=== PATIENT | female | born 1995 | race American Indian/Alaskan Native ===

== ENCOUNTER 2017-07-10 06:29 | Emergency (ER) | payer SELFPAY ==
[2017-07-10 07:31] VITALS: BP 126/77
--- NOTE | 2017-07-10 09:32 | Emergency Department Report ---
ED General Adult HPI - General Chief complaint: Urogenital-Female Stated complaint: FEVER Time Seen by Provider: 07/10/17 09:05 Source: patient Mode of arrival: Ambulatory Limitations: No Limitations - History of Present Illness Initial comments: PT c/o feeling ill since . PT states she also had a fever blister to her left lower lip. 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 PT states she popped the blister and it has healed but she is still feeling sick. PT states she might have had a fever, she did not check her temperature. Allergies:QUITA POTTER Complaint: sick -: Gradual, days(s) (4 ) Location: face, back, abdomen Severity scale (0 -10): 5 Quality: aching Consistency: constant Improves with: none Worsens with: none Associated Symptoms: fever/chills, malaise. denies: chest pain, cough, nausea/ vomiting Treatments Prior to Arrival: none - Related Data Previous Rx's Medication Instructions Recorded Last Taken Type Ibuprofen [Motrin] 600 mg PO Q8H PRN #15 tablet 07/10/17 Unknown Rx Nitrofurantoin [place]/M-Cryst 100 mg PO Q12HR #14 capsule 07/10/17 Unknown Rx [Macrobid CAP] ED Review of Systems ROS: Stated complaint: FEVER Other details as noted in HPI Comment: All other systems reviewed and negative Constitutional: fever (subjective ), malaise. denies: chills ENT: throat pain. denies: congestion Respiratory: denies: cough, shortness of breath, SOB with exertion, SOB at rest Cardiovascular: denies: chest pain Gastrointestinal: abdominal pain. denies: vomiting Genitourinary: other (pt states she is on her cycle now and having heavy bleeding ). denies: dysuria, abnormal menses Musculoskeletal: back pain Skin: rash (to lip ) ED Past Medical Hx - Past Medical History Additional medical history: HERPES - Surgical History Hx Cholecystectomy: Yes - Social History Smoking Status: Never Smoker Substance Use Type: Alcohol - Medications Home Medications: Home Medications Medication Instructions Recorded Confirmed Last Taken Type Ibuprofen [Motrin] 600 mg PO Q8H PRN #15 tablet 07/10/17 Unknown Rx Nitrofurantoin [place]/M-Cryst 100 mg PO Q12HR #14 capsule 07/10/17 Unknown Rx [Macrobid CAP] ED Physical Exam - General Limitations: No Limitations General appearance: alert, in no apparent distress - Head Head exam: Present: atraumatic, normocephalic, normal inspection - Eye Eye exam: Present: normal appearance, PERRL, EOMI. Absent: conjunctival injection, nystagmus - ENT ENT exam: Present: mucous membranes moist, TM's normal bilaterally, normal external ear exam - Expanded ENT Exam Expanded Mouth exam: Present: normal external inspection (no vesicles or ulcers noted ). Absent: drooling, trismus Teeth exam: Present: normal inspection Throat exam: Positive: tonsillar exudate (questionable exudate vs food particle on R tonsil) - Neck Neck exam: Present: normal inspection, tenderness, full ROM, lymphadenopathy - Respiratory Respiratory exam: Present: normal lung sounds bilaterally. Absent: respiratory distress, wheezes, rales, rhonchi, stridor - Cardiovascular Cardiovascular Exam: Present: regular rate, normal rhythm, normal heart sounds - GI/Abdominal GI/Abdominal exam: Present: soft, normal bowel sounds. Absent: tenderness, guarding, rebound - Extremities Exam Extremities exam: Present: normal inspection, full ROM. Absent: tenderness, normal capillary refill, pedal edema, joint swelling, calf tenderness - Back Exam Back exam: Present: normal inspection, full ROM. Absent: tenderness, CVA tenderness (R), CVA tenderness (L), muscle spasm, paraspinal tenderness, vertebral tenderness - Neurological Exam Neurological exam: Present: alert, oriented X3 - Expanded Neurological Exam Expanded Patient oriented to: Present: person, place, time Speech: Present: fluid speech Best Eye Response ([place]): (4) open spontaneously Best Motor Response ([place]): (6) obeys commands Best Verbal Response ([place]hma): (5) oriented Reshma Total: 15 - Psychiatric Psychiatric exam: Present: normal affect, normal mood - Skin Skin exam: Present: warm, dry, intact, normal color ED Course Vital Signs 07/10/17 07:29 Temperature 98.3 F Pulse Rate 98 H Respiratory 16 Rate Blood Pressure 126/77 O2 Sat by Pulse 100 Oximetry - Reevaluation(s) Reevaluation #1: 07/10/17 10:48 PT aware of lab results. PT has no questions at this time. Strict return precautions given. - Pulse Oximetry Interpretation Digit-Finger Initial Pulse Oximetry Readin Actions Taken: none ED Medical Decision Making - Lab Data Result diagrams: 07/10/17 09:17 07/10/17 09:17 NA-139 K-3.2 Chloride-97.5 Anion gap- 18 Laboratory Results - last 72 hr 07/10/17 07/10/17 07/10/17 09:15 09:17 09:17 WBC 10.8 RBC 4.39 Hgb 11.6 Hct 35.8 MCV 82 MCH 27 L MCHC 33 RDW 13.4 Plt Count 267 Lymph % (Auto) 19.7 [place] % (Auto) 14.1 H Eos % (Auto) 0.1 Baso % (Auto) 0.3 Lymph # 2.1 [place] # 1.5 H Eos # 0.0 Baso # 0.0 Seg Neutrophils % 65.8 Seg Neutrophils # 7.1 Carbon Dioxide 27 BUN 5 L Creatinine 0.8 Estimated GFR > 60 BUN/Creatinine Ratio 6.25 Glucose 88 Calcium 8.7 Total Bilirubin 0.40 AST 25 ALT 28 Alkaline Phosphatase 59 Total Protein 7.9 Albumin 3.8 L Albumin/Globulin Ratio 0.9 Urine Color Yellow Urine Turbidity Clear Urine pH 6.0 Ur Specific [place] 1.014 Urine Protein 30 mg/dl Urine Glucose (UA) Neg Urine Ketones Tr Urine Blood Lg Urine Nitrite Neg Urine Bilirubin Neg Urine Urobilinogen 2.0 Ur Leukocyte Esterase Mod Urine WBC (Auto) 41.0 H Urine RBC (Auto) 64.0 U Epithel Cells (Auto) 3.0 Urine Bacteria (Auto) 1+ Urine Mucus 2+ Urine HCG, Qual Negative - Differential Diagnosis anemia, , uti, uri Critical Care Time: No Critical care attestation.: If time is entered above; I have spent that time in minutes in the direct care of this critically ill patient, excluding procedure time. ED Disposition Clinical Impression: Hypokalemia UTI (urinary tract infection) Qualifiers: Urinary tract infection type: acute cystitis Hematuria presence: with hematuria Qualified Code(s): N30.01 - Acute cystitis with hematuria Disposition: TO HOME OR SELFCARE Is pt being admited?: No Does the pt Need Aspirin: No Condition: Stable Instructions: Urinary Tract Infection in Women (ED), Hypokalemia (ED) Additional Instructions: Follow up with PCP in 3-5 days Return to ED if worsening or concerns (fevers, chills, nausea) Prescriptions: Ibuprofen [Motrin] 600 mg PO Q8H PRN #15 tablet PRN Reason: Pain Nitrofurantoin [place]/M-Cryst [Macrobid CAP] 100 mg PO Q12HR #14 capsule Referrals: PRIMARY CARE, [Primary Care Provider] - 3-5 Days PRESTON YOUNGBLOOD MD [Staff Physician] - 3-5 Days [facility] [Outside] - 3-5 Days Forms: Work/School Release Form(ED) Time of Disposition: 10:55
[2017-07-10 09:54] LABS: Basophils % (Auto) 0.3 % (0.0-1.8); Eosinophils % (Auto) 0.1 % (0.0-4.3); Hematocrit 35.8 % (30.3-42.9); Hemoglobin 11.6 gm/dl (10.1-14.3); Mean Corpuscular HGB Conc 33 % (30-34); Mean Corpuscular Hemoglobin 27 pg (28-32); Mean Corpuscular Volume 82 fl (79-97); Platelet Count 267 K/mm3 (140-440); Red Blood Count 4.39 M/mm3 (3.65-5.03); Red Cell Distribution Width 13.4 % (13.2-15.2); White Blood Count 10.8 K/mm3 (4.5-11.0)
[2017-07-10 10:12] LABS: Alanine Aminotransferase 28 units/L (7-56); Albumin 3.8 g/dL (3.9-5); Albumin/Globulin Ratio 0.9 %; Alkaline Phosphatase 59 units/L (35-129); Anion Gap 18 mmol/L; BUN/Creatinine Ratio 6.25; Blood Urea Nitrogen 5 mg/dL (7-17); Calcium 8.7 mg/dL (8.4-10.2); Carbon Dioxide 27 mmol/L (22-30); Chloride 97.5 mmol/L (98-107); Glucose 88 mg/dL (65-100); Potassium 3.2 mmol/L (3.6-5.0); Sodium 139 mmol/L (137-145); Total Protein 7.9 g/dL (6.3-8.2)
[2017-07-10 10:15] LABS: Bacteria,Urine 1+ /HPF (Negative); Bilirubin,Urine NEG (Negative); Blood,Urine LG (Negative); Ketones,Urine TR mg/dL (Negative); Leukocyte Esterase,Urine MOD (Negative); Mucus,Urine 2+ /HPF; Nitrite,Urine NEG (Negative)
[2017-07-10] MEDS ORDERED: MOTRIN PO ONE (10:52)
[2017-07-10] MEDS ORDERED: K-DUR PO ONE (10:52)
== END 2017-07-10 11:01 | disposition home or self-care (01) ==
LOC: ED 06:29
DX: N39.0 Urinary tract infection, site not specified (principal); E87.6 Hypokalemia
CPT/HCPCS: 36415; 80053; 81001; 81025; 85025; 87076; 87086; 87116; 87186; 87430; 99283

== ENCOUNTER 2019-01-27 00:49 | Emergency (ER) | payer MEDICAID ==
[2019-01-27 00:59] VITALS: BP 126/80
[2019-01-27 01:22] LABS: Basophils # (Auto) 0.1 K/mm3 (0.0-0.1); Basophils % (Auto) 0.7 % (0.0-1.8); Eosinophils # (Auto) 0.2 K/mm3 (0.0-0.4); Eosinophils % (Auto) 1.5 % (0.0-4.3); Hematocrit 34.9 % (30.3-42.9); Hemoglobin 11.5 gm/dl (10.1-14.3); Lymphocytes # (Auto) 2.8 K/mm3 (1.2-5.4); Lymphocytes % (Auto) 21.9 % (13.4-35.0); Mean Corpuscular HGB Conc 33 % (30-34); Mean Corpuscular Volume 84 fl (79-97); Monocytes % (Auto) 7.5 % (0.0-7.3); Platelet Count 247 K/mm3 (140-440); Red Blood Count 4.15 M/mm3 (3.65-5.03); Red Cell Distribution Width 14.2 % (13.2-15.2)
[2019-01-27 01:31] LABS: Amorphous Crystals,Urine 1+; Bacteria,Urine 2+ /HPF (Negative); Bilirubin,Urine NEG (Negative); Blood,Urine NEG (Negative); Color,Urine Straw (Yellow); Protein,Urine <15 mg/dL mg/dL (Negative); Urobilinogen,Urine < 2.0 mg/dL (<2.0)
[2019-01-27 01:53] LABS: Alanine Aminotransferase 23 units/L (7-56); Albumin 4.1 g/dL (3.9-5); BUN/Creatinine Ratio 10; Blood Urea Nitrogen 7 mg/dL (7-17); Calcium 9.1 mg/dL (8.4-10.2); Hemolysis Index 6
--- NOTE | 2019-01-27 02:56 | Ultrasound Report ---
PROCEDURE: US OB <= 14 WEEKS FETUS TECHNIQUE: Real-time transabdominal sonography of the uterus, placenta, amniotic fluid, adnexa, and fetus was performed with image documentation. Measurements were obtained to determine age/size. M-mode Doppler was used to document heartbeat. ADDITIONAL GESTATION: None. HISTORY: 10 weeks with vaginal bleeding and cramping COMPARISONS: None . FINDINGS: CRL: 11 mm, which corresponds to a gestational age of: 7 weeks, 2 days. Yolk Sac: Appropriate for gestational age. . Embryonic Cardiac Activity: 1 19 bpm . Gestational Sac: Size and shape are appropriate for gestational age Placenta: Normal Amniotic fluid: Appropriate for gestational age. Cervix: Normal. Right Ovary: Normal . Left Ovary: Normal . Estimated delivery date: 09/13/2019 . Uterus and adnexa: Normal. IMPRESSION: Single live intrauterine gestation at approximately 7 weeks 2 days . EDC by US 09/13/20 19 . This document is electronically signed by Joy George DO., January 27 2019 02:54:27 AM ET
== END 2019-01-27 04:09 | disposition left against medical advice (07) ==
LOC: ED 00:49
DX: O26.891 Other specified pregnancy related conditions, first trimester (principal); R10.2 Pelvic and perineal pain; Z3A.10 10 weeks gestation of pregnancy; Z53.21 Procedure and treatment not carried out due to patient leaving prior to being seen by health care provider
CPT/HCPCS: 36415; 76801; 80053; 81001; 84702; 85025

== ENCOUNTER 2019-02-21 20:41 | Emergency (ER) | payer MEDICAID ==
[2019-02-21 21:16] VITALS: BP 112/74
--- NOTE | 2019-02-21 21:56 | Emergency Department Report ---
Blank Doc - Documentation Documentation: 23 y o female at 9 weeks cc of vaginal bleed labs ,US ordered ACC eval
[2019-02-21 22:14] LABS: Basophils % (Auto) 0.2 % (0.0-1.8); Eosinophils # (Auto) 0.2 K/mm3 (0.0-0.4); Eosinophils % (Auto) 1.4 % (0.0-4.3); Hematocrit 36.6 % (30.3-42.9); Hemoglobin 11.9 gm/dl (10.1-14.3); Lymphocytes # (Auto) 2.7 K/mm3 (1.2-5.4); Lymphocytes % (Auto) 19.7 % (13.4-35.0); Mean Corpuscular HGB Conc 32 % (30-34); Mean Corpuscular Volume 85 fl (79-97); Monocytes # (Auto) 0.9 K/mm3 (0.0-0.8); Monocytes % (Auto) 6.8 % (0.0-7.3); Platelet Count 276 K/mm3 (140-440); Red Cell Distribution Width 14.4 % (13.2-15.2)
[2019-02-21 22:26] LABS: BUN/Creatinine Ratio 11; Blood Urea Nitrogen 8 mg/dL (7-17); Calcium 9.2 mg/dL (8.4-10.2); Hemolysis Index 16
[2019-02-21 22:56] LABS: Bacteria,Urine 4+ /HPF (Negative); Bilirubin,Urine NEG (Negative); Blood,Urine NEG (Negative); Color,Urine Amber (Yellow); Mucus,Urine 3+ /HPF; Urobilinogen,Urine < 2.0 mg/dL (<2.0)
--- NOTE | 2019-02-22 00:09 | Ultrasound Report ---
PROCEDURE: US OB <= 14 WEEKS FETUS TECHNIQUE: Real-time transabdominal and transvaginal sonography of the uterus, placenta, amniotic fl uid, adnexa, and fetus was performed with image documentation. Measurements were obtained to determin e age/size. M-mode Doppler was used to document heartbeat. ADDITIONAL GESTATION: None. HISTORY: vag bleed COMPARISONS: None . FINDINGS: CRL: 40 mm, which corresponds to a gestational age of: 10 weeks, 6 days. Yolk Sac: Appropriate for gestational age. . Embryonic Cardiac Activity: 1 63 bpm . Gestational Sac: Size and shape are appropriate for gestational age Placenta: Normal Amniotic fluid: Appropriate for gestational age. Cervix: Normal. Right Ovary: Normal . Left Ovary: Normal . Estimated delivery date: 09/13/2019 . Uterus and adnexa: Normal. IMPRESSION: Single live intrauterine gestation at approximately 10 weeks 6 days . EDC by US 019 . This document is electronically signed by Joy George DO., Feb 22 2019 12:07:04 AM ET
--- NOTE | 2019-02-22 00:09 | Ultrasound Report ---
PROCEDURE: US OB TRANSVAGINAL TECHNIQUE: Real-time transabdominal and transvaginal sonography of the uterus, placenta, amniotic fl uid, adnexa, and fetus was performed with image documentation. Measurements were obtained to determin e age/size. M-mode Doppler was used to document heartbeat. ADDITIONAL GESTATION: None. HISTORY: vag bleed COMPARISONS: None . FINDINGS: CRL: 40 mm, which corresponds to a gestational age of: 10 weeks, 6 days. Yolk Sac: Appropriate for gestational age. . Embryonic Cardiac Activity: 1 63 bpm . Gestational Sac: Size and shape are appropriate for gestational age Placenta: Normal Amniotic fluid: Appropriate for gestational age. Cervix: Normal. Right Ovary: Normal . Left Ovary: Normal . Estimated delivery date: 09/13/2019 . Uterus and adnexa: Normal. IMPRESSION: Single live intrauterine gestation at approximately 10 weeks 6 days . EDC by US 019 . This document is electronically signed by Joy George DO., Feb 22 2019 12:07:36 AM ET
== END 2019-02-22 00:50 | disposition left against medical advice (07) ==
LOC: ED 20:41
DX: O20.8 Other hemorrhage in early pregnancy (principal); Z53.21 Procedure and treatment not carried out due to patient leaving prior to being seen by health care provider
CPT/HCPCS: 36415; 76801; 76817; 80048; 81001; 84702; 85025

== ENCOUNTER 2019-03-28 19:00 | Emergency (ER) | payer MEDICAID ==
[2019-03-28 20:01] VITALS: BP 117/80
[2019-03-28 20:24] LABS: Basophils % (Auto) 0.2 % (0.0-1.8); Eosinophils # (Auto) 0.1 K/mm3 (0.0-0.4); Eosinophils % (Auto) 1.1 % (0.0-4.3); Hematocrit 35.4 % (30.3-42.9); Hemoglobin 11.9 gm/dl (10.1-14.3); Lymphocytes # (Auto) 2.2 K/mm3 (1.2-5.4); Mean Corpuscular HGB Conc 34 % (30-34); Mean Corpuscular Volume 85 fl (79-97); Monocytes # (Auto) 0.6 K/mm3 (0.0-0.8); Monocytes % (Auto) 5.6 % (0.0-7.3); Platelet Count 246 K/mm3 (140-440); Red Blood Count 4.17 M/mm3 (3.65-5.03); Red Cell Distribution Width 13.9 % (13.2-15.2)
[2019-03-28 20:56] LABS: Bacteria,Urine 4+ /HPF (Negative); Bilirubin,Urine NEG (Negative); Blood,Urine NEG (Negative); Color,Urine Yellow (Yellow); Mucus,Urine 1+ /HPF; Protein,Urine <15 mg/dL mg/dL (Negative); Urobilinogen,Urine < 2.0 mg/dL (<2.0)
[2019-03-28 21:05] LABS: BUN/Creatinine Ratio 14; Blood Urea Nitrogen 10 mg/dL (7-17); Calcium 9.1 mg/dL (8.4-10.2); Hemolysis Index 0
--- NOTE | 2019-03-28 22:50 | Ultrasound Report ---
EXAM: US OB >= 14 WEEKS FETUS HISTORY: abdominal cramps TECHNIQUE: [place]one scale imaging, duplex Doppler and color flow Doppler imaging are performed with a cur vilinear transducer. COMPARISON: None available. FINDINGS: There is a single IUP in breech presentation. The estimated heart rate is 140 beats per minute. No gross anomaly is seen at this time. The following biometric measurements are obtained: BPD 3.03 cm (15 weeks 4 days) HC 11.5 cm (15 weeks 5 days) AC 10.67 cm (16 weeks 4 days) FL 1.97 cm (15 weeks 6 days) The estimated composite gestational age is 16 weeks, 0 days, plus/minus standard deviation. The ASHLY i s 09/12/2019. The biometric ratios are within normal limits: Cephalic index 73.3; HC/AC 1.09; FL/BPD 65.0; FL/HC 17.0; FL/AC 18.5. There is a anterior placenta, without evidence for placenta previa or abruption. The cervical length is within normal limits, measuring approximately 4.2 cm. There is no evidence for cervical incompeten ce. The amniotic fluid volume is within normal limits; largest fluid pocket is seen in the right lower qu adrant measuring 3 cm CC. The ovaries are not visualized. No free fluid is seen in the pelvis. IMPRESSION: 1. Single live IUP with estimated gestational age of 16 weeks, 0 days plus/minus standard deviation. 2. The ASHLY is 09/12/2019. 3. The estimated heart rate is 140 beats per minute. 4. No gross anomaly is seen at this time (Limited views of the anatomy). 5. Anterior placenta without evidence for placental previa or abruption. 6. The amniotic fluid volume is within normal limits. 7. The cervical length is within normal limits, measuring approximately 4.2 cm. 8. The ovaries are not visualized. 9. No free fluid is seen in the pelvis. This document is electronically signed by Clementina Guzmán MD., March 28 2019 10:48:56 PM ET
== END 2019-03-28 22:30 | disposition left against medical advice (07) ==
LOC: ED 19:00
DX: O26.892 Other specified pregnancy related conditions, second trimester (principal); R10.9 Unspecified abdominal pain; M54.5 Low back pain; R11.2 Nausea with vomiting, unspecified; Z3A.16 16 weeks gestation of pregnancy
CPT/HCPCS: 36415; 76805; 80048; 81001; 84702; 85025; 87086; 99284